=== PATIENT | male | born 1985 | race Caucasian/White ===

== ENCOUNTER 2017-10-10 10:08 | Emergency (ER) | payer SELFPAY ==
[2017-10-10] MEDS ORDERED: Sodium Chloride 0.9% 1,000 ML IV ONE (10:20)
[2017-10-10] MEDS ORDERED: Ketorolac 30 MG/ML SDV IVPUSH ONE (10:20)
[2017-10-10] MEDS ORDERED: Ondansetron 4 MG/2 ML SDV IVPUSH ONE (10:20)
--- NOTE | 2017-10-10 10:20 | EDM.PDOC ---
ED HPI GENERAL MEDICAL PROBLEM - General Chief Complaint: Abdominal Pain Stated Complaint: ABD PAIN Time Seen by Provider: 10/10/17 10:16 Source of Information: Reports: Patient History Limitations: Reports: No Limitations - History of Present Illness INITIAL COMMENTS - FREE TEXT/NARRATIVE: HISTORY AND PHYSICAL: History of present illness: Patient is a 32-year-old male who presents to the emergency room today with complaints of low pelvic pain and nausea. He states that for the past 3 months he has had generalized abdominal pain but over the past 24 hours has had more severe sharp to the low pelvic area. He states he has noted intermittent hematuria. Currently has not noted any blood in urine or stools. He denies any fever, chills, chest pain, shortness of breath. Any vomiting, diarrhea, constipation or dysuria. Denies any testicular swelling, tenderness or erythema. Review of systems: As per history of present illness and below otherwise all systems reviewed and negative. Past medical history: As per history of present illness and as reviewed below otherwise noncontributory. Surgical history: As per history of present illness and as reviewed below otherwise noncontributory. Social history: No reported history of drug or alcohol abuse. Family history: As per history of present illness and as reviewed below otherwise noncontributory. Physical exam: General: Well-developed and well-nourished 32-year-old male. Alert and oriented. Nontoxic appearing and in no acute distress. HEENT: Atraumatic, normocephalic, pupils equal and reactive bilaterally, negative for conjunctival pallor or scleral icterus, mucous membranes moist, throat clear, neck supple, nontender, trachea midline. No drooling or trismus noted. No meningeal signs Lungs: Clear to auscultation, breath sounds equal bilaterally, chest nontender. Heart: S1S2, regular rate and rhythm without overt murmur Abdomen: Soft, nondistended, suprapubic tenderness. Negative for masses or hepatosplenomegaly. Right sided costovertebral tenderness. Pelvis: Stable nontender. Genitourinary: Deferred. Rectal: Deferred. Skin: Intact, warm, dry. No lesions or rashes noted. Extremities: Atraumatic, negative for cords or calf pain. Neurovascular unremarkable. Neuro: Awake, alert, oriented. Cranial nerves II through XII unremarkable. Cerebellum unremarkable. Motor and sensory unremarkable throughout. Exam nonfocal. Notes: Dr. Weathers was consulted on this case. He has reviewed the patient's CT scan and lab work. He recommends Flomax and Salem for pain management. He reports that if the patient has not passed his stones by Monday he will see him in his office. This information was shared with the patient. Patient currently states that he feels "much better". He is agreeable to plan of care. Denies any further questions or concerns at this time. Diagnostics: CBC, CMP, UA, amylase, lipase Therapeutics: IV fluid, Zofran, Toradol, Morphine Prescription: Flomax, Salem Impression: Kidney Stone Plan: 1. Please take your medication as directed. Do not take the Salem while driving or needing to be functioning outside of the house as his does cause drowsiness. Take ibuprofen for breakthrough pain. 2. Please strain your urine and continue to monitor for passing of stone. 3. As we discussed, if you feel you have not passed your kidney stone and/or you 're still having pain, please see Dr. May on Monday. Call his office to set up an appointment. He is aware of your case and is willing to see you then. Return to the ED as needed and as discussed. Definitive disposition and diagnosis as appropriate pending reevaluation and review of above. abdominal pain Pain Score (Numeric/FACES): 10 - Related Data Allergies Allergy/AdvReac Type Severity Reaction Status Date / Time No Known Allergies Allergy Verified 10/10/17 10:13 Home Meds: Home Meds Acetaminophen/HYDROcodone [Salem 325-5 MG] 1 tab PO Q4H PRN #20 tablet 10/10/17 [Rx] Tamsulosin HCl [Flomax] 0.4 mg PO DAILY 14 Days #14 cap.er.24h 10/10/17 [Rx] Testosterone Undecanoate [Aveed] 0.5 injection IM WEEKLY 10/10/17 [History] ED ROS GENERAL - Review of Systems Review Of Systems: ROS reveals no pertinent complaints other than HPI. ED EXAM, GI/ABD - Physical Exam Exam: See Below (See dictation) Course - Vital Signs Last Recorded V/S: Last Vital Signs Temp 96.5 F 10/10/17 10:15 Pulse 98 10/10/17 10:15 Resp 22 H 10/10/17 10:15 BP 151/92 H 10/10/17 10:15 Pulse Ox 99 10/10/17 10:15 - Orders/Labs/Meds Orders: Active Orders 24 hr Category Date Time Status UA W/MICROSCOPIC [URIN] Stat Lab 10/10/17 10:50 Ordered Labs: Laboratory Tests 10/10/17 10/10/17 10/10/17 Range/Units 10:22 10:22 10:50 WBC 11.09 H (4.0-11.0) K/uL RBC 5.24 (4.50-5.90) M/uL Hgb 14.6 (13.0-17.0) g/dL Hct 41.6 (38.0-50.0) % MCV 79.4 L (80.0-98.0) fL MCH 27.9 (27.0-32.0) pg MCHC 35.1 (31.0-37.0) g/dL RDW Std Deviation 38.6 (28.0-62.0) fl RDW Coeff of Raymond 14 (11.0-15.0) % Plt Count 249 (150-400) K/uL MPV 9.00 (7.40-12.00) fL Add Manual Diff YES Neutrophils % (Manual) 78 (48.0-80.0) % Band Neutrophils % 1 % Lymphocytes % (Manual) 20 (16.0-40.0) % Monocytes % (Manual) 1 (0.0-15.0) % Nucleated RBC % 0.0 /100WBC Absolute Seg Neuts 8.7 H (1.4-5.7) Band Neutrophils # 0.1 Lymphocytes # (Manual) 2.2 (0.6-2.4) Monocytes # (Manual) 0.1 (0.0-0.8) Nucleated RBCs # 0 K/uL Sodium 139 (136-148) mmol/L Potassium 3.9 (3.5-5.1) mmol/L Chloride 102 (98-107) mmol/L Carbon Dioxide 25.4 (21.0-32.0) mmol/L BUN 24 H (7.0-18.0) mg/dL Creatinine 1.4 H (0.8-1.3) mg/dL Est Cr Clr Drug Dosing 78.21 mL/min Estimated GFR (MDRD) 58.7 ml/min Glucose 134 H (74-106) mg/dL Calcium 9.5 (8.5-10.1) mg/dL Total Bilirubin 0.9 (0.2-1.0) mg/dL AST 60 H (15-37) IU/L ALT 57 (14-63) IU/L Alkaline Phosphatase 60 (46-116) U/L Total Protein 8.1 (6.4-8.2) g/dL Albumin 4.8 (3.4-5.0) g/dL Globulin 3.3 (2.0-3.5) g/dL Albumin/Globulin Ratio 1.5 (1.3-2.8) Amylase 44 (25-115) U/L Lipase 94 (73-393) U/L Urine Color YELLOW Urine Appearance CLEAR Urine pH 6.5 (5.0-8.0) Ur Specific Cobb 1.025 (1.001-1.035) Urine Protein 30 (NEGATIVE) mg/dL Urine Glucose (UA) NEGATIVE (NEGATIVE) mg/dL Urine Ketones NEGATIVE (NEGATIVE) mg/dL Urine Occult Blood LARGE H (NEGATIVE) Urine Nitrite NEGATIVE (NEGATIVE) Urine Bilirubin NEGATIVE (NEGATIVE) Urine Urobilinogen 0.2 (<2.0) EU/dL Ur Leukocyte Esterase NEGATIVE (NEGATIVE) Urine RBC 20-25 (0-2/HPF) Urine WBC 1-3 (0-5/HPF) Ur Epithelial Cells RARE (NONE-FEW) Urine Bacteria FEW (NEGATIVE) Urine Mucus LIGHT (NONE-MOD) Meds: Medications Discontinued Medications Generic Name Dose Route Start Last Admin Trade Name Freq PRN Reason Stop Dose Admin Sodium Chloride 1,000 mls @ 999 mls/hr 10/10/17 10:20 10/10/17 10:36 Normal Saline IV 10/10/17 11:20 999 mls/hr STAT ONE Administration Ketorolac Tromethamine 30 mg 10/10/17 10:20 10/10/17 10:36 Toradol IVPUSH 10/10/17 10:21 30 mg ONETIME ONE Administration Morphine Sulfate 4 mg 10/10/17 11:07 10/10/17 11:19 Morphine IVPUSH 10/10/17 11:08 Not Given ONETIME ONE Morphine Sulfate 4 mg 10/10/17 11:12 10/10/17 11:19 Morphine IVPUSH 10/10/17 11:13 Not Given ONETIME ONE Ondansetron HCl 4 mg 10/10/17 10:20 10/10/17 10:37 Zofran IVPUSH 10/10/17 10:21 4 mg ONETIME ONE Administration Tamsulosin HCl 0.4 mg 10/10/17 12:25 Flomax PO 10/10/17 12:26 ONETIME ONE Departure - Departure Time of Disposition: 12:32 Disposition: Home, Self-Care 01 Clinical Impression: Kidney stone - Discharge Information Prescriptions: Acetaminophen/HYDROcodone [Salem 325-5 MG] 1 tab PO Q4H PRN #20 tablet PRN Reason: Pain Tamsulosin HCl [Flomax] 0.4 mg PO DAILY 14 Days #14 cap.er.24h Instructions: Kidney Stones, [id number] Referrals: PCP,None [Primary Care Provider] - Forms: ED Department Discharge Additional Instructions: The following information is given to patients seen in the emergency department who are being discharged to home. This information is to outline your options for follow-up care. We provide all patients seen in our emergency department with a follow-up referral. The need for follow-up, as well as the timing and circumstances, are variable depending upon the specifics of your emergency department visit. If you don't have a primary care physician on staff, we will provide you with a referral. We always advise you to contact your personal physician following an emergency department visit to inform them of the circumstance of the visit and for follow-up with them and/or the need for any referrals to a consulting specialist. The emergency department will also refer you to a specialist when appropriate. This referral assures that you have the opportunity for follow-up care with a specialist. All of these measure are taken in an effort to provide you with optimal care, which includes your follow-up. Under all circumstances we always encourage you to contact your private physician who remains a resource for coordinating your care. When calling for follow-up care, please make the office aware that this follow-up is from your recent emergency room visit. If for any reason you are refused follow-up, please contact the [facility] Emergency Department at and asked to speak to the emergency department charge nurse. [facility] Primary Care [address] [place] [id number] [facility] Specialty Care - Urology [address] [place] [address] 1. Please take your medication as directed. Do not take the Salem while driving or needing to be functioning outside of the house as his does cause drowsiness. Take ibuprofen for breakthrough pain. 2. Please strain your urine and continue to monitor for passing of stone. 3. As we discussed, if you feel you have not passed your kidney stone and/or you 're still having pain, please see Dr. May on Monday. Call his office to set up an appointment. He is aware of your case and is willing to see you then. Return to the ED as needed and as discussed. - My Orders Last 24 Hours: My Active Orders 10/10/17 10:50 UA W/MICROSCOPIC [URIN] Stat - Assessment/Plan Last 24 Hours: My Active Orders 10/10/17 10:50 UA W/MICROSCOPIC [URIN] Stat
[2017-10-10] MEDS ORDERED: Morphine 4 MG/ML Syringe IVPUSH ONE (11:07)
[2017-10-10] MEDS ORDERED: Morphine 2 MG/ML Syringe IVPUSH ONE (11:12)
--- NOTE | 2017-10-10 11:58 | CT ---
CT of the abdomen and pelvis without contrast. HISTORY: Pain TECHNIQUE: Axial CT images were obtained of the abdomen and pelvis without contrast. Coronal and sagi ttal reconstructions obtained. FINDINGS: The lung bases are clear, no pleural effusion. The liver, spleen, adrenal glands, and pancreas appear unremarkable for noncontrast examination. The gallbladder appears normal. There is no bulky retroperitoneal lymphadenopathy. No abdominal ascites. There is a tiny hiatal hernia. There are several stones within the distal right ureter measuring up to 3 to 4 mm with moderate proxi mal hydronephrosis. Nonobstructing nephrolithiasis noted within the left kidney. The large and small bowel are normal in caliber without evidence of obstruction. The appendix appears normal. There is no bulky pelvic lymphadenopathy. No free fluid. No free air. The urinary bladder ap pears normal. The visualized osseous structures appear normal. IMPRESSION: 1. There are several obstructing stones noted within the distal right ureter measuring up to 3 to 4 m m with moderate proximal hydronephrosis. 2. Nonobstructing left nephrolithiasis noted.
[2017-10-10] MEDS ORDERED: Tamsulosin 0.4 MG Cap.ER PO ONE (12:25)
== END 2017-10-10 12:51 | disposition home or self-care (01) ==
LOC: MW.ED 10:08
DX: N13.2 Hydronephrosis with renal and ureteral calculous obstruction (principal)
CPT/HCPCS: 36415; 74176; 80053; 81001; 82150; 83690; 85025; 96361; 96374; 96375; 99284; A9270; J1885; J2405; J7040

== ENCOUNTER 2018-02-18 16:11 | Emergency (ER) | payer SELFPAY ==
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
[2018-02-18] MEDS ORDERED: Cephalexin 500 MG Cap PO ONE (16:29)
== END 2018-02-18 16:39 | disposition home or self-care (01) ==
LOC: MW.ED 16:11
DX: L03.113 Cellulitis of right upper limb (principal); Z79.899 Other long term (current) drug therapy
CPT/HCPCS: 99283; A9270

== ENCOUNTER 2018-05-22 03:20 | Emergency (ER) | payer SELFPAY | END 2018-05-22 03:47 | disposition home or self-care (01) | LOC: MW.ED 03:20 | DX: H92.03 Otalgia, bilateral (principal); Z53.21 Procedure and treatment not carried out due to patient leaving prior to being seen by health care provider ==

== ENCOUNTER 2018-05-23 00:35 | Emergency (ER) | payer SELFPAY ==
[2018-05-23] MEDS ORDERED: Penicillin G Benzathine 1,200,000 Units/2 ML Syringe IM ONE (01:09)
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
== END 2018-05-23 01:31 | disposition home or self-care (01) ==
LOC: MW.ED 00:35
DX: J02.0 Streptococcal pharyngitis (principal); F17.210 Nicotine dependence, cigarettes, uncomplicated
CPT/HCPCS: 87880; 99283; J0561

== ENCOUNTER 2018-05-23 12:40 | Emergency (ER) | payer SELFPAY ==
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
== END 2018-05-23 13:01 | disposition home or self-care (01) ==
LOC: MW.ED 12:40
DX: J02.0 Streptococcal pharyngitis (principal)
CPT/HCPCS: 99282

== ENCOUNTER 2018-08-23 04:03 | Emergency (ER) | payer SELFPAY ==
[2018-08-23 05:16] LABS: CHLORIDE,CL 104 mmol/L (98-107); SODIUM,NA 142 mmol/L (136-148)
--- NOTE | 2018-08-23 05:19 | CR ---
Indication: Pain and infection. Technique: Right elbow 3 views Comparison: None Findings: Bones: Alignment is normal. No fractures or bone lesions. Joint spaces: Joint spaces are well maintained. No degenerative changes. No sign of joint effusion. Soft tissues: Dorsal soft tissue swelling. Impression: Dorsal soft tissue swelling without radiographic evidence of osteomyelitis or elbow effusion. Dictated by Peng Crews MD @ Aug 23 2018 5:17AM Signed by Dr. Peng Crews @ Aug 23 2018 5:18AM
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
[2018-08-23] MEDS ORDERED: cefTRIAXone 1 GM in Premix Bag 1 BAG IV ONE (05:47)
[2018-08-23] MEDS ORDERED: Acetaminophen 500 MG Tab PO ONE (06:09)
== END 2018-08-23 06:21 | disposition home or self-care (01) ==
LOC: MW.ED 04:03
DX: L03.113 Cellulitis of right upper limb (principal); F17.210 Nicotine dependence, cigarettes, uncomplicated
CPT/HCPCS: 36415; 73080; 80053; 85025; 87040; 96365; 99283; A4217; A9270; J0696

== ENCOUNTER 2019-05-30 23:21 | Emergency (ER) | payer SELFPAY ==
[2019-05-31] MEDS ORDERED: Alum Hydrox/Mag Hydrox/Simeth 15 ML, Metoclopramide 5 MG, Lidocaine 2% 5 ML PO ONE ×3 (01:10)
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
--- NOTE | 2019-05-31 01:54 | CR ---
INDICATION: Chest pain COMPARISON: None available. FINDINGS: PA and lateral views of the chest were obtained. The lungs are clear. No focal or diffuse infiltrates are present. The heart is normal in size. The mediastinum is normal in appearance. There is minimal scoliosis of the thoracic spine convex towards the right. The osseous structures are otherwise normal in appearance for the patient`s age. IMPRESSION: No active disease seen in the chest. Dictated by Seng Caicedo MD @ May 31 2019 1:50AM Signed by Dr. Segn Caicedo @ May 31 2019 1:51AM
[2019-05-31] MEDS ORDERED: Doxycycline 100 MG Cap PO ONE (02:26)
== END 2019-05-31 02:36 | disposition home or self-care (01) ==
LOC: MW.ED 23:21
DX: R07.89 Other chest pain (principal); R22.31 Localized swelling, mass and lump, right upper limb
CPT/HCPCS: 36415; 71046; 84484; 93005; 99285; A9270

== ENCOUNTER 2020-05-06 02:07 | Emergency (ER) | payer OTHER ==
[2020-05-06] MEDS ORDERED: HYDROmorphone 1 MG/ML Syringe IVPUSH ONE (02:13)
[2020-05-06] MEDS ORDERED: Ketorolac 15 MG/ML SDV IVPUSH ONE (02:13)
[2020-05-06] MEDS ORDERED: Sodium Chloride 0.9% 10 ML Syringe FLUSH PRN (02:13)
[2020-05-06] MEDS ORDERED: Sodium Chloride 0.9% 1,000 ML IV ONE (02:13)
[2020-05-06] MEDS ORDERED: Ondansetron 4 MG/2 ML SDV IVPUSH ONE (02:13)
[2020-05-06] MEDS ORDERED: Sodium Chloride 0.9% 2.5 ML Syringe FLUSH PRN (02:13)
[2020-05-06] MEDS ORDERED: Ketorolac 15 MG/ML SDV ONE (02:15)
[2020-05-06] MEDS ORDERED: HYDROmorphone 1 MG/ML Syringe ONE (02:15)
[2020-05-06] MEDS ORDERED: Ondansetron 4 MG/2 ML SDV ONE (02:15)
[2020-05-06 02:47] LABS: CARBON DIOXIDE,CO2 27.2 mmol/L (21.0-32.0); POTASSIUM,K 3.6 mmol/L (3.5-5.1)
[2020-05-06] MEDS ORDERED: fentaNYL 50 MCG/ML SDV IVPUSH ONE (03:05)
--- NOTE | 2020-05-06 04:31 | CT ---
Indication: Left flank pain, kidney stone suspected Technique: Nonenhanced axial CT imaging through the abdomen and pelvis. Sagittal and coronal reconstructions are provided. Comparison: CT abdomen pelvis without contrast 11/23/2017 Findings: There is a 6 x 4 mm stone at the left ureterovesical junction. An additional 3 mm stone is noted in the distal left ureter. There is moderate left hydroureteronephrosis. There are two additional small nonobstructing left renal stones measuring 3 mm each. No renal stones are seen on the right. There is unremarkable noncontrast appearance of the liver, gallbladder, spleen, pancreas, and adrenal glands. There is no abdominal lymphadenopathy. There is normal caliber of the abdominal aorta. The stomach and duodenum are unremarkable. There are no abnormally dilated small bowel loops. The appendix is noninflamed. There is no colonic wall thickening or mesenteric edema. Nonspecific coarse calcification is noted in the prostate gland. There is no prostatomegaly. The seminal vesicles are unremarkable. No lymphadenopathy is appreciated in the pelvis. The osseous structures are unremarkable. The included lung bases are clear. Impression: A 6 mm stone at the left ureterovesical junction. Moderate left hydroureteronephrosis. Additional 3 mm stone in the distal left ureter and two small nonobstructing stones in the left kidney. No right renal stones. Please note that all CT scans at this facility use dose modulation, iterative reconstruction, and/or weight-based dosing when appropriate to reduce radiation dose to as low as reasonably achievable. Dictated by Madison Terry MD @ May 06 2020 4:21AM Signed by Dr. Madison Terry @ May 06 2020 4:29AM
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
[2020-05-06] MEDS ORDERED: traMADol 50 MG Tab PO ONE (05:08)
[2020-05-06] MEDS ORDERED: HYDROmorphone 2 MG/ML Syringe IVPUSH ONE (05:09)
== END 2020-05-06 05:25 | disposition home or self-care (01) ==
LOC: MW.ED 02:07
DX: N13.2 Hydronephrosis with renal and ureteral calculous obstruction (principal)
CPT/HCPCS: 36415; 74176; 80053; 81001; 83690; 85025; 96374; 96375; 96376; 99284; A9270; J1170; J1885; J2405; J3010; J7030; 99283

== ENCOUNTER 2021-03-07 19:17 | Emergency (ER) | payer BC, OTHER ==
[2021-03-07] MEDS ORDERED: HYDROmorphone 1 MG/ML Syringe IM ONE ×2 (20:07→20:56)
== END 2021-03-07 21:40 | disposition home or self-care (01) ==
LOC: MW.ED 19:17
DX: S06.0X0A Concussion without loss of consciousness, initial encounter (principal); W20.8XXA Other cause of strike by thrown, projected or falling object, initial encounter
CPT/HCPCS: 70450; 96372; 99283; J1170

== ENCOUNTER 2021-05-23 14:41 | Emergency (ER) | payer BC ==
[2021-05-23] MEDS ORDERED: Lidocaine 1% with EPINEPHrine 1:100,000 10 ML MDV INJECT ONE (15:44)
[2021-05-23] MEDS ORDERED: Diphtheria,Pertussis(Acell),Tetanus Vaccine 0.5 ML Syringe IM ONE (16:21)
== END 2021-05-23 16:31 | disposition home or self-care (01) ==
LOC: MW.ED 14:41
DX: S01.81XA Laceration without foreign body of other part of head, initial encounter (principal); W22.09XA Striking against other stationary object, initial encounter
CPT/HCPCS: 12013; 70450; 70450-26; 99283-25

== ENCOUNTER 2023-08-18 16:07 | Emergency (ER) | payer SELFPAY ==
[2023-08-18 16:19] LABS: BASOPHILS ABSOLUTE AUTO 0.03 K/uL (0.00-0.20); BASOPHILS PERCENT AUTO 0.6 % (0.0-1.0); EOSINOPHILS ABSOLUTE AUTO 0.23 K/uL (0.00-0.45); EOSINOPHILS PERCENT AUTO 4.7 % (0.0-6.0); HEMATOCRIT 43.2 % (42.0-52.0); IMMATURE GRAN ABSOLUTE AUTO 0.02 K/uL (0.00-0.05); IMMATURE GRAN PERCENT AUTO 0.4 % (0.0-0.4); LYMPHOCYTES ABSOLUTE AUTO 1.78 K/uL (1.00-4.80); MEAN CORPUSCULAR HEMOGLOBIN 27.8 pg (28.0-32.0); MEAN CORPUSCULAR HGB CONC 34.7 g/dL (32.0-36.0); MEAN PLATELET VOLUME 8.9 fL (9.4-12.4); MONOCYTES PERCENT AUTO 12.1 % (0.0-8.0); NEUTROPHILS ABSOLUTE AUTO 2.28 K/uL (1.80-7.70); NEUTROPHILS PERCENT AUTO 46.2 % (41.0-71.0); PLATELET COUNT,PLT 251 K/uL (150-400); WHITE BLOOD CELL COUNT,WBC 4.94 K/uL (3.9-11.3)
[2023-08-18 16:37] LABS: BASE EXCESS ARTERIAL 3.4 (-2.0-3.0); BICARBONATE,ARTERIAL 28 mEq/L (22-26); PCO2 ARTERIAL 42 mmHG (35-45); PO2 ARTERIAL 83 mmHG (80-105)
[2023-08-18 16:42] LABS: LIPASE 34 U/L (16-77)
[2023-08-18 16:45] LABS: A/G RATIO 1.1 (0.9-1.6); ALBUMIN 3.9 g/dL (3.4-5.0); BILIRUBIN TOTAL 0.8 mg/dL (0.2-1.0); CARBON DIOXIDE,CO2 30.8 mmol/L (21.0-32.0); EST CRCL DRUG DOSING (CG) 103.42 mL/min; POTASSIUM,K 3.7 mmol/L (3.5-5.1); PROTEIN TOTAL,TP 7.3 g/dL (6.4-8.2)
[2023-08-18 16:52] LABS: ETHANOL BLOOD MEDICAL < 3.0 mg/dL
[2023-08-18 16:59] LABS: APPEARANCE,URINE CLEAR; BILIRUBIN,URINE NEGATIVE (NEGATIVE); COLOR,URINE YELLOW; GLUCOSE,URINE NEGATIVE (NEGATIVE); KETONES,URINE NEGATIVE (NEGATIVE); LEUKOCYTE ESTERASE,URINE NEGATIVE (NEGATIVE); NITRITE,URINE NEGATIVE (NEGATIVE); OCCULT BLOOD,URINE NEGATIVE (NEGATIVE); PROTEIN,URINE NEGATIVE (NEGATIVE); UROBILINOGEN,URINE 0.2 EU/dL (<2.0)
[2023-08-18 17:09] LABS: AMPHETAMINES SCREEN, URINE PRESUMPTIVE POSITIVE (CUTOFF=500); BARBITURATE SCREEN,URINE NEGATIVE (CUTOFF=200); BENZODIAZEPINES SCREEN,URINE NEGATIVE (CUTOFF=150); BUPRENORPHINE SCREEN,URINE NEGATIVE (CUTOFF=10); METHADONE SCREEN, URINE NEGATIVE (CUTOFF=200); METHAMPHETAMINES SCREEN, URINE PRESUMPTIVE POSITIVE (CUTOFF=500); OXYCODONE SCREEN,URINE NEGATIVE (CUT0FF=100); PCP SCREEN,URINE NEGATIVE (CUTOFF=25); THC SCREEN,URINE 20 NG/ML NEGATIVE (CUTOFF=50)
[2023-08-18] MEDS: Sodium Chloride 0.9% 1,000 ML IV ONE (17:15)
[2023-08-18] MEDS: LORazepam 0.5 MG Tab PO ONE (17:35)
== END 2023-08-18 18:11 ==
LOC: MW.ED 16:07
DX: R41.82 Altered mental status, unspecified (principal); F41.9 Anxiety disorder, unspecified; F15.10 Other stimulant abuse, uncomplicated; Z75.8 Other problems related to medical facilities and other health care
CPT/HCPCS: 36415; 36600; 71045; 80053; 80305; 80307; 81003; 82550; 82803; 83690; 85025; 93005; 96360; 99285; A9270; J7030; 93010

== ENCOUNTER 2023-12-02 07:23 | Emergency (ER) | payer SELFPAY ==
[2023-12-02] MEDS ORDERED: Sodium Chloride 0.9% 10 ML Syringe FLUSH PRN (07:33)
[2023-12-02] MEDS ORDERED: Sodium Chloride 0.9% 2.5 ML Syringe FLUSH PRN (07:33)
[2023-12-02 07:49] LABS: BASOPHILS ABSOLUTE AUTO 0.06 K/uL (0.00-0.20); BASOPHILS PERCENT AUTO 0.8 % (0.0-1.0); EOSINOPHILS ABSOLUTE AUTO 0.16 K/uL (0.00-0.45); EOSINOPHILS PERCENT AUTO 2.1 % (0.0-6.0); HEMATOCRIT 41.5 % (42.0-52.0); HEMOGLOBIN 14.6 g/dL (14.0-18.0); IMMATURE GRAN ABSOLUTE AUTO 0.02 K/uL (0.00-0.05); IMMATURE GRAN PERCENT AUTO 0.3 % (0.0-0.4); LYMPHOCYTES ABSOLUTE AUTO 1.75 K/uL (1.00-4.80); LYMPHOCYTES PERCENT AUTO 23.2 % (24.0-44.0); MEAN CORPUSCULAR HEMOGLOBIN 27.4 pg (28.0-32.0); MEAN CORPUSCULAR HGB CONC 35.2 g/dL (32.0-36.0); MEAN PLATELET VOLUME 8.5 fL (9.4-12.4); MONOCYTES ABSOLUTE AUTO 0.84 K/uL (0.00-0.80); MONOCYTES PERCENT AUTO 11.2 % (0.0-8.0); NEUTROPHILS PERCENT AUTO 62.4 % (41.0-71.0); PLATELET COUNT,PLT 299 K/uL (150-400); RED BLOOD CELL COUNT 5.32 M/uL (4.52-5.90); WHITE BLOOD CELL COUNT,WBC 7.53 K/uL (3.9-11.3)
[2023-12-02] MEDS: Ketorolac 30 MG/ML SDV IVPUSH ONE (07:53)
[2023-12-02] MEDS: Sodium Chloride 0.9% 1,000 ML IV ONE (07:53)
[2023-12-02] MEDS: Ondansetron 4 MG/2 ML SDV IVPUSH ONE (07:54)
[2023-12-02 08:12] LABS: A/G RATIO 1.3 (0.9-1.6); ALBUMIN 4.2 g/dL (3.4-5.0); BILIRUBIN TOTAL 0.4 mg/dL (0.2-1.0); CALCIUM 9.5 mg/dL (8.5-10.1); CARBON DIOXIDE,CO2 29.5 mmol/L (21.0-32.0); CREATININE 1.3 mg/dL (0.8-1.3); EST CRCL DRUG DOSING (CG) 79.55 mL/min; POTASSIUM,K 4.1 mmol/L (3.5-5.1); PROTEIN TOTAL,TP 7.5 g/dL (6.4-8.2)
[2023-12-02] MEDS: Tamsulosin 0.4 MG Cap.ER PO ONE (09:14)
[2023-12-02] MEDS: fentaNYL 50 MCG/ML SDV IVPUSH ONE (09:15)
[2023-12-02 10:23] LABS: APPEARANCE,URINE CLEAR; BILIRUBIN,URINE NEGATIVE (NEGATIVE); COLOR,URINE YELLOW; GLUCOSE,URINE NEGATIVE (NEGATIVE); KETONES,URINE NEGATIVE (NEGATIVE); LEUKOCYTE ESTERASE,URINE NEGATIVE (NEGATIVE); NITRITE,URINE NEGATIVE (NEGATIVE); OCCULT BLOOD,URINE SMALL (NEGATIVE); PROTEIN,URINE NEGATIVE (NEGATIVE); UROBILINOGEN,URINE 0.2 EU/dL (<2.0)
[2023-12-02 10:34] LABS: BACTERIA,URINE RARE (NEGATIVE); EPITHELIAL CELLS,URINE RARE (NONE-FEW); HYALINE CASTS,URINE 0-1 (0-2/LPF); MUCUS,URINE LIGHT (NONE-MOD); SPERM,URINE PRESENT (NEGATIVE); WBC,URINE 0-2 (0-5/HPF)
== END 2023-12-02 10:50 | disposition home or self-care (01) ==
LOC: MW.ED 07:23
DX: N20.1 Calculus of ureter (principal); N23 Unspecified renal colic; Z75.8 Other problems related to medical facilities and other health care
CPT/HCPCS: 36415; 74176; 80053; 81001; 85025; 96361; 96374; 96375; 99284; A9270; J1885; J2405; J3010; J7030